=== PATIENT | male | born 1985 | race African-American/Black ===

== ENCOUNTER 2019-02-02 02:56 | Emergency (ER) | payer BC ==
[~2019-02-02] VITALS: Ht 188 cm; Wt 109.0 kg
[2019-02-02] MEDS ORDERED: VISCOUS LIDOCAINE 2% 15 ML UDC MM STA (03:42)
[2019-02-02] MEDS ORDERED: OMEPRAZOLE 20MG CAPSULE EXTENDED RELEASE PO ONE (03:45)
[2019-02-02] MEDS ORDERED: MAGNESIUM/ALUMINUM HYDROXIDE/SIMETHICONE 30ML UDC PO ONE (03:45)
[2019-02-02 04:42] VITALS: BP 125/80
== END 2019-02-02 04:43 | disposition home or self-care (01) ==
LOC: ER 02:56
DX: K21.9 Gastro-esophageal reflux disease without esophagitis (principal); K29.70 Gastritis, unspecified, without bleeding; Z88.1 Allergy status to other antibiotic agents
CPT/HCPCS: 93005; 99284